=== PATIENT | female | born 1925 | race Two or more races ===

== ENCOUNTER 2017-02-07 12:56 | Outpatient (CLI) | payer OTHER ==
--- NOTE | 2017-02-07 15:23 | Diagnostic Imaging Report ---
Indication: COUGH Technique: 2 views of the chest Comparison: none Findings: Lungs and pleural spaces are clear. Heart size is normal. Aorta is calcified. The bones are osteoporotic. There are degenerative changes of the thoracic spine Impression: No acute process
== END 2017-02-07 14:56 | disposition home or self-care (01) ==
LOC: RAD 12:56
DX: R05 Cough (principal); M81.0 Age-related osteoporosis without current pathological fracture
CPT/HCPCS: 71020